=== PATIENT | male | born 1940 | race Caucasian/White ===

== ENCOUNTER 2016-09-05 15:10 | Emergency (ER) | payer MEDICARE, OTHER ==
[~2016-09-05] VITALS: Ht 180.3 cm; Wt 96.6 kg
[2016-09-05] MEDS ORDERED: CRES20TA PO (15:42)
[2016-09-05] MEDS ORDERED: FOLI800C PO (15:42)
[2016-09-05] MEDS ORDERED: FISH1000 PO (15:42)
[2016-09-05] MEDS ORDERED: AMLO5TAB2 PO (15:42)
[2016-09-05] MEDS ORDERED: VITA-122 PO (15:42)
[2016-09-05] MEDS ORDERED: ASPI325T PO (15:42)
[2016-09-05] MEDS ORDERED: TRIA37.53 PO (15:42)
[2016-09-05] MEDS ORDERED: AMPICILLIN SOD/SULBACTAM SOD 3 GM in D5W MINI-BAG PLUS 100 ML IV ONE (19:45)
[2016-09-05] MEDS ORDERED: KETOROLAC 30 MG/ML VIAL (J1885) IV ONE (19:45)
[2016-09-05 20:05] LABS: WHITE BLOOD COUNT 11.3 K/mm3 (4.0-10.0)
[2016-09-05 20:06] LABS: BASO % 0.2 % (0.0-1.0); EOS # 0.3 K/mm3 (0.0-0.50); EOS % 2.5 % (0.0-3.0); LARGE UNSTAINED CELL # 0.1 K/mm3 (0.0-0.4); LARGE UNSTAINED CELL % 0.9 % (0.0-4.0); LYMPH # 1.6 K/mm3 (1.5-4.5); LYMPH % 13.4 % (24.0-44.0); MEAN CORPUSCULAR HEMOGLOBIN 27.6 pg (27.0-33.0); MEAN CORPUSCULAR HGB CONC 32.6 g/dl (32.0-36.5); MEAN CORPUSCULAR VOLUME 84.7 fl (80.0-96.0); MONO # 0.5 K/mm3 (0.0-0.8); MONO % 4.2 % (0.0-5.0); NEUTROPHILS # 8.9 K/mm3 (1.8-7.7); NEUTROPHILS % 78.9 % (36.0-66.0); PLATELET COUNT, AUTOMATED 245 k/mm3 (150-450); RED CELL DISTRIBUTION WIDTH 13.1 % (11.5-14.5)
[2016-09-05 20:24] LABS: ALBUMIN 3.8 GM/DL (3.2-5.2); ALBUMIN/GLOBULIN RATIO 0.95 (1.00-1.93); BILIRUBIN,DIRECT 0.2 MG/DL (0.0-0.2); BILIRUBIN,TOTAL 0.5 MG/DL (0.2-1.0); CALCIUM LEVEL 8.8 MG/DL (8.8-10.2); CREATININE FOR GFR 2.41 MG/DL (0.70-1.30); POTASSIUM SERUM 3.6 MEQ/L (3.5-5.1); TOTAL PROTEIN 7.8 GM/DL (6.4-8.2)
[2016-09-05 21:16] LABS: ERYTHROCYTE SEDIMENTATION RATE 91 mm/hr (0-20)
--- NOTE | 2016-09-05 22:10 | REPUSA ---
CT of the facial bones without contrast Clinical history: Pain, possible abscess. Technique: Multiple axial CT images were obtained through the facial bones and paranasal sinuses util izing 3 mm axial slices without administration of contrast. Coronal and sagittal reconstructions were also obtained. Findings: The visualized paranasal sinuses are clear. The osteomeatal complexes are patent bilaterall y. The nasal septum is midline. The visualized mastoid air cells are clear. The osseous structures do not demonstrate any acute abnormalities. However, there is a area lucency in the oral cavity in the region of the posterior right mandible, in the region of the posterior molar. At the site, low densit y is seen within the mandible. This also suspicion impacted tooth at the site. No discrete fluid mary ection is identified. The superficial soft tissues are within normal limits. Impression: Low attenuation area in the posterior right mandible in the oral cavity, in the region of the posterior molar, with suspected impacted tooth. This could represent a periodontal abscess in th e appropriate clinical setting. Follow-up is suggested as clinically indicated.
[2016-09-05 23:59] VITALS: BP 133/66
[2016-09-05] MEDS ORDERED: AUGM875T27 PO (23:59)
[2016-09-06] MEDS ORDERED: AUGMENTIN 875 MG TAB PO ONE
--- NOTE | 2016-09-06 13:55 | ED PDOC ---
Provider Note dr burns faxed formal report of ct max fac for fu frannieg Purnima Pires MD Sep 06, 2016 13:55
== END 2016-09-05 19:48 | disposition home or self-care (01) ==
LOC: M ED 18:13
DX: L03.211 Cellulitis of face (principal)
CPT/HCPCS: 36415; 70486; 80048; 80076; 83605; 85025; 85652; 86140; 96374; 96375; 99283; J1885